=== PATIENT | female | born 1990 | race African-American/Black ===

== ENCOUNTER 2016-08-13 20:48 | Emergency (ER) | payer SELFPAY ==
[2016-08-13 21:00] VITALS: BMI 20.4
--- NOTE | 2016-08-13 22:20 | EDPRACDOC ---
- General Information Chief Complaint: Female Urogenital Problems Stated Complaint: IRRITATION IN PRIVATE AREA Time Seen by Provider: 08/13/16 22:06 Information Source: Patient Mode Of Arrival: Car Home Medications: Home Medications Fluconazole [Diflucan] 100 mg PO DAILY #4 tab 08/13/16 Allergies/Adverse Reactions: Allergies Allergy/AdvReac Type Severity Reaction Status Date / Time No Known Allergies Allergy Verified 07/09/16 14:56 - History of Present Illness HPI: PT C/O GENITAL ITCHING, SWELLING AND WHITE DISCHARGE FOR 2-3 DAYS. PT STATES FEELS LIKE ANOTHER YEAST INFECTION. 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 Urinary Pain Location: Reports: None Symptom Onset: Reports: Spontaneous Pain Severity: Mild Pain Quality: Reports: Burning : No Oral Intake: Normal Urinary Output: Normal Associated Signs and Symptoms: Reports: Vaginal Itching ED Past Medical History - History Reviewed Yes Nurses notes reviewed and agree except as marked Travel Outside of [place] in the Last 3 Months?: No No Past Medical History: Yes Patient has no past medical history - Patient Medical History Psychological History: Denies: Depression Surgical History: Denies: Hysterectomy - Social Medical History Smoking Status: Never smoker Social History: Reports: Marijuana Use ETOH: None Substance Abuse: None Lives With: Other Lives In: Home EDM Review of Systems - Review of Systems ROS Negative Except as Marked: Yes All systems reviewed and were negative except as marked Constitutional: No Symptoms Reported. negative: Fever, Chills, Weakness, Fatigue, Loss of Appetite Eyes: No Symptoms Reported. negative: Redness, Blurred Vision, Double Vision, Discharge, Pain, Light Sensitive, Photophobia Ears: No Symptoms Reported. negative: Pain, Hearing Loss, Drainage, Ear Pulling Throat: No Symptoms Reported. negative: Pain, Swelling Nose: No Symptoms Reported. negative: Congestion, Bleeding, Discharge, Injection, Swelling, Deformity, Ecchymosis, Tender, Abrasion, Laceration Mouth: No Symptoms Reported. negative: Pain, Drooling Respiratory: No Symptoms Reported. negative: Cough, Brassy Cough, Barky Cough, Shortness of Breath, Wheezing, Hemoptysis Cardiovascular: No Symptoms Reported. negative: Chest Pain, Palpitations, Syncope, Edema, Orthopnea, PND, Skin Mottling, Cyanosis Gastrointestinal: No Symptoms Reported. negative: Pain, Constipation, Nausea, Vomiting, Diarrhea, Melena, Formula Intolerance Genitourinary: Other (VULVA SWELLING ITCHING AND BURNING WITH WHITE DISCHARGE). negative: Bleeding, Dysuria, Discharge, Frequency, Hematuria, , Testicular Pain Neurological: No Symptoms Reported. negative: Headache, Dizziness, Seizure, Numbness, Weakness, Speech Difficulty, Gait Difficulty Musculoskeletal: No Symptoms Reported. negative: Neck, Chestwall, Ribs, Back, Shoulder, Arm, Elbow, Forearm, Wrist, Hand, Pelvis, Hip, Femur, Knee, Leg, Ankle , Foot Integumentary: No Symptoms Reported. negative: Itching, Rash, Bruising, Wound Allergic/Immunologic: No Symptoms Reported. negative: Hives, Itching Hematologic: No Symptoms Reported. negative: Lymphadenopathy, Easy Bruising, Easy Bleeding Endocrine: No Symptoms Reported. negative: Weight Gain, Weight Loss Psychiatric: No Symptoms Reported. negative: Anxiety, Depression, Hallucinations, Insomnia, Suicidal - Physical Exam Constitutional: No apparent distress, Alert (Awake) Oriented to: Time, Person, Place Last recorded Vital Signs: Last Vital Signs Temp 98.9 F 08/13/16 20:57 Pulse 90 08/13/16 20:57 Resp 20 08/13/16 20:57 BP 117/59 L 08/13/16 20:57 Pulse Ox 100 08/13/16 20:57 Oxygen Pulse Oxygen Saturation 100 O2 Device Room Air Oxygen Flow Rate Fraction of Inspired Oxygen ( FIO2) - HEENT Head: Normal ( normocephalic) Eye Exam: Normal (PERRL, EOMI, Sclera white) Oropharynx: Normal (Pharynx:Moist without exudate,Gums-no swelling) Tympanic Membrane: Normal ENT EAC: Normal TMJ: Normal Nose: No Symptoms Reported (septum midline) Neck: Normal (FROM, trachea at midline) - Respiratory/Cardiovascular Respiratory: Normal - CTA (BBS clear to auscultation without adventitious sounds ) Cardiovascular: Normal (RRR without murmur, gallop or rub) - GI Auscultation: Normal (NABS) Palpation: Normal (Soft,No rebound or guarding, non distended) Tenderness: Non tender Geiger's Sign: Negative - Bladder: Normal External: Other (REDNESS MILD SWELLING WITH WHITE DISCHARGE CONSISTENT WITH YEAST INFECTION.) - Musculoskeletal Back: Normal (Non-Tender) Extremities: Normal (Normal tone, Pulses 2+ No cyanosis or edema, FROM) - Integumentary Skin: Normal, Warm, Dry Lymphatics: Normal (no adenopathy) - Neurologic Memory Impaired: Normal Motor Function: Normal (Normal tone, Pulses 2+ No cyanosis or edema, FROM) Cranial Nerve: Normal (CN II-X11 intact sensation, strength 5/5) Cerebellar: Normal Mood Description: Normal Perception: Normal - Differential Diagnosis Vaginitis Decision Time to Discharge: 22:20 - Departure Disposition: Home Condition: Stable Final Diagnosis: Candidiasis of vagina Instructions: Vulvovaginal Candidiasis (ED) Education/Counseling Given To: Patient Education/Counseling Given Regarding: Diagnosis, Treatment, Prognosis, Follow Up Referrals: None,No Provider [Primary Care Provider] - One Week Prescriptions: New Fluconazole [Diflucan] 100 mg PO DAILY #4 tab Additional Instructions: RETURN FOR WORSE OR DIFFERENT SYMPTOMS.
[2016-08-13 22:33] VITALS: BP 110/57; PULSE 75; TEMP 98.7
== END 2016-08-13 22:37 | disposition home or self-care (01) ==
LOC: ED 20:48
DX: B37.3 Candidiasis of vulva and vagina (principal)
CPT/HCPCS: 99282